=== PATIENT | female | born 1975 | race Caucasian/White ===

== ENCOUNTER 2017-10-25 07:44 | Emergency (ER) | payer OTHER ==
[2017-10-25 07:58] VITALS: BP 120/66
[2017-10-25] MEDS ORDERED: Ketorolac INJ* 60 MG/2 ML VIAL IM ONE (08:27)
--- NOTE | 2017-10-25 08:34 | UC ---
Shoulder Pain HPI - HPI Summary HPI Summary: States she started having right shoulder pain 3 days ago after lifting her child. SHe states pain is present when brushing her hair and lifting arm above horizontal. History of calcific tenditis on the left shoulder, but symptoms resolved with NSAIDS which on this occasion are not working. Pain is not present when she is resting and not moving her shoulder - History of Current Complaint Chief Complaint: UCUpperExtremity Stated Complaint: SHOULDER INJURY Time Seen by Provider: 10/25/17 08:12 Hx Obtained From: Patient Hx Last Menstrual Period: 10/18/17 Onset/Duration: Sudden Onset, Lasting Days Timing: Minutes Severity Initially: Moderate Severity Currently: Severe Pain Intensity: 7 Character: Sharp, Aching Aggravating Factor(s): Movement, Lifting Alleviating Factor(s): Rest Associated Signs And Symptoms: Positive: Negative - Risk Factors Non-Orthopedic Risk Factor: Negative DVT Risk Factors: Negative Septic Arthritis Risk Factor: Negative - Allergies/Home Medications Allergies/Adverse Reactions: Allergies Allergy/AdvReac Type Severity Reaction Status Date / Time latex Allergy Unknown Verified 10/25/17 07:51 Reaction Details minocycline Allergy Unknown Verified 10/25/17 07:51 Reaction Details Penicillins Allergy Unknown Verified 10/25/17 07:51 Reaction Details Home Medications: Home Medications Cetirizine HCl [Zyrtec] 10 mg PO 10/25/17 [History] PMH/Surg Hx/FS Hx/Imm Hx Previously Healthy: Yes Endocrine History: Hypothyroidism - Surgical History Surgical History: Yes Surgery Procedure, Year, and Place: GALL BLADDER OUT 2003 - Family History Known Family History: Positive: Diabetes Negative: Blood Disorder - Social History Alcohol Use: None Substance Use Type: None Smoking Status (MU): Never Smoked Tobacco - Immunization History Most Recent Influenza Vaccination: fall 2012 Most Recent Tetanus Shot: unkown Most Recent Pneumonia Vaccination: none Review of Systems Constitutional: Negative Skin: Negative Eyes: Negative ENT: Negative Gastrointestinal: Negative Genitourinary: Negative Musculoskeletal: Arthralgia, Myalgia All Other Systems Reviewed And Are Negative: Yes Physical Exam Triage Information Reviewed: Yes Appearance: Well-Appearing, No Pain Distress, Obese Vital Signs: Initial Vital Signs Temp 97.7 F 10/25/17 07:55 Pulse 74 10/25/17 07:55 Resp 16 10/25/17 07:55 BP 120/66 10/25/17 07:55 Pulse Ox 99 08/19/18 07:55 Vital Signs Reviewed: Yes ENT: Positive: Hearing grossly normal Neck: Positive: Supple Respiratory: Positive: Chest non-tender Cardiovascular: Positive: Pulses Normal, Brisk Capillary Refill Abdomen Description: Positive: Nontender Musculoskeletal: Positive: Strength Intact, No Edema, ROM Limited @ - 90 degrees elevation on right shoulder, forward and lateral elevation. Hawkings negative, empty can test negative, impingement sign negative, non tender ss muscle, tender teres muscle palpation Shoulder Course/Dx - Course Course Of Treatment: xray shows a 1.2cm exostosis of humeral proximal diaphysis , r/o osteoma vs osteochondroma, to follow up with PCP for imaging, referral to PT, continue NSAIDS as prescribed - Differential Dx/Diagnosis Provider Diagnoses: right shoulder pain Discharge - Sign-Out/Discharge Documenting (check all that apply): Patient Departure - Discharge Plan Condition: Good Disposition: HOME Patient Education Materials: Shoulder Sprain (ED), Naproxen (By mouth) Referrals: Pepper Bang MD [Primary Care Provider] - Additional Instructions: please follow up with your primary doctor for follow up imaging of shoulder with MRI. - Billing Disposition and Condition Condition: GOOD Disposition: Home
--- NOTE | 2017-10-25 09:05 | RAD ---
HISTORY: right shoulder pain after heavy lifting COMPARISONS: None VIEWS: 4, Frontal internal rotation, external rotation, outlet, and axillary views of the right shoulder FINDINGS: BONE DENSITY: Normal. BONES: There is no displaced fracture. There is a 0.7 x 1.2 cm exostosis of the radial aspect of the proximal humeral diaphysis. 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 ALIGNMENT: There is no dislocation. SOFT TISSUES: Unremarkable. OTHER FINDINGS: None. IMPRESSION: 1. 1.2 CM EXOSTOSIS OF THE PROXIMAL HUMERAL DIAPHYSIS, LIKELY AN OSTEOMA OR OSTEOCHONDROMA. IF THERE IS PAIN ASSOCIATED WITH THIS LESION, RECOMMEND CONSIDERATION OF FURTHER EVALUATION WITH MRI OF THE AREA OF CONCERN IN THE NONACUTE SETTING. 2. NO ACUTE OSSEOUS INJURY. IF SYMPTOMS PERSIST, RECOMMEND REPEAT IMAGING
== END 2017-10-25 09:24 | disposition home or self-care (01) ==
LOC: UCEAST 07:44
DX: M25.512 Pain in left shoulder (principal); Z88.0 Allergy status to penicillin
CPT/HCPCS: 96372; 99212; G0463; J1885